=== PATIENT | male | born 1980 | race Caucasian/White ===

== ENCOUNTER 2018-08-07 20:30 | Outpatient (CLI) | payer OTHER | END 2018-08-07 20:31 | disposition home or self-care (01) | LOC: SLEEPLAB 20:30 | PROVIDERS: ATTEND Internal Medicine | DX: G47.33 Obstructive sleep apnea (adult) (pediatric) (principal); R53.83 Other fatigue; R06.83 Snoring; G47.10 Hypersomnia, unspecified; I10 Essential (primary) hypertension; G47.00 Insomnia, unspecified; E66.9 Obesity, unspecified; Z68.33 Body mass index [BMI] 33.0-33.9, adult | CPT/HCPCS: 95811 ==